=== PATIENT | male | born 1970 | race Caucasian/White ===

== ENCOUNTER 2024-08-09 08:48 | Day surgery (SDC) | payer BC, SELFPAY ==
[2024-07-29 08:08] VITALS: BMI 26.7
[2024-07-29 08:41] LABS: % Basophils 1.5 % (0-2); % Eosinophils 0.8 % (0-6); % Immature Granulocytes 0.4 % (0-0.5); % Lymphocytes 25.2 % (20.5-51.1); % Monocytes 9.8 % (1.7-9.3); % Neutrophils 62.3 % (42.2-75.2); Absolute Basophils 0.1 10^3/uL (0-0.2); Absolute Eosinophils 0.1 10^3/uL (0-0.7); Absolute Lymphocytes 1.9 10^3/uL (1.2-3.4); Absolute Monocytes 0.7 10^3/uL (0.1-0.6); Absolute Neutrophils 4.6 10^3/uL (1.4-6.5); Hematocrit 44.9 % (39.0-52.0); Hemoglobin 16.1 g/dL (13.0-18.0); Mean Corp Hgb Conc. 35.9 g/dL (33.0-37.0); Mean Corpuscular Hgb 37.4 pg (27.0-31.0); Mean Corpuscular Volume 104.4 fL (80.0-94.0); Mean Platelet Volume 10.1 fL (7.4-10.4); Nucleated Red Blood Cells % 0 % (-); Platelet Count 182 10^3/uL (130-400); Red Cell Dist. Width 14.1 % (11.5-14.5); White Blood Cell Count 7.4 10^3/uL (4.8-10.8)
[2024-07-29 08:48] LABS: INR 1.12; PT 14.7 Sec (11.4-14.6)
[2024-07-29 08:52] LABS: ALT (SGPT) 39 U/L (0-50); AST (SGOT) 49 U/L (17-59); Albumin 4.8 g/dl (3.5-5.0); Alkaline Phosphatase 96 U/L (38-126); Blood Urea Nitrogen 11 mg/dl (9-20); Calcium 9.6 mg/dl (8.4-10.2); Carbon Dioxide 21 mmol/L (22-30); Chloride 106 mmol/L (98-107); Estimated Creatinine Clearance 122 ml/min; Glucose 109 mg/dl (70-99); Magnesium 1.8 mg/dl (1.6-2.3); Potassium 4.5 mmol/L (3.5-5.1); Sodium 139 mmol/L (135-145); Total Bilirubin 1.1 mg/dl (0.2-1.3); Total Protein 7.4 g/dl (6.3-8.2); eGFR > 60.00
[2024-08-09] VITALS (14 sets, daily range): BP systolic 141–178; BP diastolic 87–116; BMI 26.3
--- NOTE | 2024-08-09 10:31 | ITS.CL.ABL ---
Machine Shop Inspector - Ablation
Ablation
Procedure Report:
Primary Machines Technician: Dr Olivier Valdovinos
Procedure Date: 08/09/2024
Patient History:
Patient is a pleasant 53-year-old male with a past medical history significant for hypertension, alcohol use, former tobacco use, new onset cardiomyopathy EF 35-40% thought to be nonischemic/tachycardia related, paroxysmal likely persistent atrial
fibrillation.
See H&P for complete details.
Indication:
Cardiomyopathy
Paroxysmal likely persistent atrial fibrillation
Early recurrence following cardioversion
Arrhythmia Specific History:
Prior Medical Therapies for Rate and Rhythm Control:
X Beta-jocelyn
X Calcium channel-jocelyn
[ ] Amiodarone
[ ] Dronederone
[ ] Sotalol
[ ] Flecainide
[ ] Dofetilide
[ ] Options limited by bradycardia
[ ] Options limited by comorbid renal disease
Prior Procedural Therapies for AF/AFL:
X Cardioversion
[ ] Pulmonary Vein Isolation
[ ] Posterior Wall Isolation
[ ] Additional lines (Specify)
[ ] Surgical Terrell-MAZE or PVI (Specify)
Procedure Performed:
X AF ablation procedure (44899) -- includes LA/CS pacing, trans-septal, 3D mapping, + ICE
[ ] +IV drug (26590)
[ ] +Other Arrhythmia (60543)
X +Other AF Line/ablation (64675) - Posterior wall isolation (floor, roof, wall)
Risks and expected recovery has been explained in detail. Alternative options have been explored, and in a shared-decision making fashion we have decided that this was the most appropriate procedure.
Method
NPO status confirmed. Grounding pad applied. Defibrillator pads applied. Continuous surface ECG, pulse oximetry, and blood pressure were monitored. Procedure was performed under general anesthesia, with anesthesia services.
Both groins were clipped, prepped with Chloraprep, and draped in sterile fashion. Time out was called. Local anesthesia administered with bupivacaine. The right femoral vein was accessed for catheter placement, using ultrasound guidance (images
saved to record), micro-puncture needle/wire, and modified seldinger technique. 3 sheaths were placed. The following catheters were used:
[ ] Tacticath SE (D/F Curve) ablation catheter
X Viewflex 9Fr ICE catheter
X Inquiry decapolar 6Fr diagnostic catheter
[ ] CRD Hex 6Fr
[ ] Arctic Front Advance Cryoballoon ([ ]28mm[ ]23mm)
[ ] Achieve Advance mapping catheter ([ ]15mm[ ]20mm)
X FlexCath Contour 10 Fr with PulseSelect PFA Catheter
X Advisor HD Grid Mapping Catheter, SE
[ ] AcusZoomph AcuNav 8 Fr ICE catheter
[ ]Other: [ ]
Intracardiac ultrasound (ICE) was carefully advanced into the right atrium to guide sheath placement over a J-wire, catheter placement, guide trans-septal puncture, identify potential complications, identify anatomic structures and ensure proper
contact between ablation catheter and tissue. A trace/small pericardial effusion was noted circumferentially at the start of procedure which had also been reported on patient's prior CT scan. Pericardial effusion remained unchanged during
procedure and at case completion.
Heparin was given prior to trans-septal puncture. Heparin was given to achieve and maintain a target ACT of 300-400 seconds throughout the procedure.
Trans-septal access was performed under ICE guidance. The trans-septal puncture was performed with a SafeSept wire through a Brockenbrough needle assembly through the steerable sheath. The wire was visualized as it entered the LSPV and system
advanced under ICE guidance and fluoroscopy into the LA. The Brockenbrough needle assembly, SafeSept wire and sheath dilator were removed under negative pressure. LA pressure was measured and recorded.
ICE and 3D mapping was performed to identify relevant cardiac structures. A careful 3D map was created to assess for regions of low-voltage and abnormal electrogram signals using HD grid mapping catheter and PulseSelect catheter. Additional mapping
was performed as outlined below.
Prior to ablation, glycopyrrolate was provided. PulseSelect catheter was advanced over J-wire to the ostium of each vein. Pulmonary vein isolation was performed with ostial and antral lesions in a circumferential manner. Contact was visualized via
EAM, ICE, fluoroscopy, and EGM signals. Posterior wall isolation was performed by anchoring the J-wire within the pulmonary vein and placing the PulseSelect catheter in contact with the posterior wall as visualized by aforementioned methods.
Following completion of ablation lesions, sinus rhythm was restored with a 200J synchronized DCCV and a post-ablation voltage/activation map was performed in sinus rhythm. Entrance and exit block were confirmed for each vein and the posterior wall.
Catheter and sheath were removed from the left atrium and post-ablation intracardiac echo evaluation was consistent with pre-ablation with no changes and no pericardial effusion and there is no left atrial thrombus or left ventricle thrombus seen.
Electrophysiology study was performed. Hemostasis was obtained with figure of 8 stitch for each groin and with manual pressure. Protamine was used for reversal.
Estimated Blood Loss
5 mL
Complications
None
Fluoroscopy: 2.8 minutes; 11.55 mGy; DAP 1.23
LA Pressure: Pre 12 mmHg, Post 14 mmHg
Baseline Intervals:
Rhythm: AF
QRS: 82 ms
Post-Procedure Intervals:
NV: 194 ms
QRS: 86 ms
QT: 399 ms
QTc: 421 ms
AVWB: 330 ms
AERP: 600/200 ms
Recommendations
- Bedrest with straight-leg precautions as ordered
- Anticipate same day discharge if patient meeting clinical metrics
- Resume home medications as indicated; discontinue diltiazem in setting of CM
- Ok to resume anticoagulation tonight if patient and groin sites stable
- PPI daily for 30 days
- Plan for follow-up in office as scheduled
Dario Batista DO, FACC, RS
Clinical Cardiac Bilingual Kindergarten Teacher
cc: Dr Olivier Valdovinos; Dr Sakina Aldridge
[2024-08-09 11:33] LABS: ACT-LR - POC 300 Seconds (116-155)
[2024-08-09 11:53] LABS: ACT-LR - POC 347 Seconds (116-155)
[2024-08-09 12:18] LABS: ACT-LR - POC 385 Seconds (116-155)
[2024-08-09 12:38] LABS: ACT-LR - POC 390 Seconds (116-155)
[2024-08-09 13:00] LABS: ACT-LR - POC 126 Seconds (116-155)
[2024-08-09] MEDS: LOPRESSOR 100 MG PO (16:47)
[2024-08-09] MEDS: ZESTRIL 20 MG PO (16:47)
--- NOTE | 2024-08-09 17:02 | W.PN.UPDATE ---
Update Note
Progress Note Update
53 yo WM s/p PVI (same day). He denies cp, sob, gloria diet, EKG SR, R fem site c/d/i no HT, soft. He will resume Eliquis tonight at home. He will continue metoprolol and we will add PPI for 30 days. Activity restrictions reviewed. He will f/u
[facility] in 2 mo. He is for d/c home after 6pm if groin stable and voiding.
== END 2024-08-09 18:00 | disposition home or self-care (01) ==
LOC: CATH 08:48
PROVIDERS: ATTENDING PHYSICIAN Internal Medicine Cardiovascular Disease; FAMILY PHYSICIAN Internal Medicine; OTHER PHYSICIAN Internal Medicine Cardiovascular Disease
DX: I48.0 Paroxysmal atrial fibrillation (principal); I42.9 Cardiomyopathy, unspecified; Z87.891 Personal history of nicotine dependence; I10 Essential (primary) hypertension; Q67.6 Pectus excavatum; R91.1 Solitary pulmonary nodule
CPT/HCPCS: C1732; C1894; C1730; C1769; C1759; C1733; C1766; 36415; 75572; 80053; 83735; 85025; 85347; 85610; 86850; 86900; 86901; 93005; 93656; 93657; Q9967